=== PATIENT | female | born 1960 | race Caucasian/White ===

== ENCOUNTER 2016-05-22 06:26 | Emergency (ER) | payer OTHER ==
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
[2016-05-22] MEDS ORDERED: MOTRIN PO ONE (07:49)
[2016-05-22 08:00] VITALS: BP 168/93
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
== END 2016-05-22 08:10 | disposition home or self-care (01) ==
LOC: P.ED 06:26
DX: S20.219A Contusion of unspecified front wall of thorax, initial encounter (principal); R07.89 Other chest pain; R14.0 Abdominal distension (gaseous); I10 Essential (primary) hypertension; E66.9 Obesity, unspecified; Z79.899 Other long term (current) drug therapy; Z98.84 Bariatric surgery status; Z96.651 Presence of right artificial knee joint; V44.5XXA Car driver injured in collision with heavy transport vehicle or bus in traffic accident, initial encounter
CPT/HCPCS: 71010; 99283